=== PATIENT | female | born 1945 | race Caucasian/White ===

== ENCOUNTER 2020-03-08 16:10 | Inpatient (IN) | payer MEDICARE, OTHER ==
[2020-03-08] VITALS (319 sets, daily range): BP systolic 115–183; BP diastolic 49–70; PULSE 48–94; TEMP 97.7–97.8; O2SAT 88–100
[~2020-03-08] VITALS: Ht 167.6 cm; Wt 56.8 kg
--- NOTE | 2020-03-08 15:00 | NUR ---
RECEIVED REPORT FROM [facility] ICU WYATT KIM. AWAITING ARRIVAL OF PT TO ICU 7.
[~2020-03-08 16:10] MED LIST: FLEXERIL5 MG PO; GLUCOPHAGE500 MG/TAB PO; NEURONTIN100 MG/CAP PO; NORCO 325 MG-51 TAB PO; VITAMIN B1225 MCG PO; ZOCOR 20MG20 MG PO
--- NOTE | 2020-03-08 16:40 | NUR ---
RECEIVED REPORT FROM MACHINE CLOTHING REPLACER ON EMS, STATES IS 5 MINUTES OUT.
--- NOTE | 2020-03-08 16:50 | NUR ---
PT ARRIVES TO ICU 7. DR RIOJAS AT BEDSIDE FOR ASSESSMENT. PT ON 2L VIA NC. PT WALKS OVER TO ICU BED X1 ASSIST. PLACED ON BEDSIDE CONTINUOUS MONITOR. CALL LIGHT WITHIN REACH. DR RIOJAS AWARE OF HIGH BP STATES TO JUST MONITOR CLOSELY. SEE GTT FLOWSHEET.
[2020-03-08] MEDS ORDERED: ZOCOR 10MG10 MG PO (17:23)
[2020-03-08] MEDS ORDERED: ALTACE 5MG5 MG PO (17:24)
[2020-03-08] MEDS ORDERED: REMERON30 MG PO (17:25)
[2020-03-08] MEDS ORDERED: THE MEDICINE S200 M2 PO (17:27)
[2020-03-08] MEDS ORDERED: RT ADVAIR 228 DISKUS IH (17:27)
[2020-03-08] MEDS ORDERED: THEO-24 20200 MG/CAP PO ×2 (17:47)
[2020-03-08] MEDS ORDERED: SPIRIVA RE2.5 MCG/Ac IH (20:50)
[2020-03-08] MEDS ORDERED: RT SPIRIVA18 MCG IH (20:50)
--- NOTE | 2020-03-08 23:27 | NUR ---
PT RESTING IN BED DENIES ANY PAIN, DOA. ABLE TO GET UP FROM BED STAND-BY ASSIST. PT REMAINS ON 2L NC WHICH IS HOME O2 LEVEL. PT REMAINS ON DOBUTAMINE GTT @ 5MCG. VSS WILL CONTINUE TO MONITOR PT STATUS AND UPDATE PROVIDERS NEEDED.
[2020-03-09] VITALS (988 sets, daily range): BP systolic 106–153; BP diastolic 44–76; PULSE 81–118; TEMP 97.6–98.1; O2SAT 92–100
[2020-03-09 06:09] LABS: BASO # 0.1 (0.0-0.2); BASO % 0.8 % (0.0-2.0); EOS # 0.2 (0.0-0.7); EOS % 3.2 % (0-4.0); GRAN # 4.9 (1.4-6.5); GRAN % 67.4 % (42.2-75.2); HEMOGLOBIN 10.6 g/dl (12.5-16.0); LYMPH # 1.1 (1.2-3.4); LYMPH % 15.6 % (20.0-51.0); MEAN CELL VOLUME 90 fl (80.0-100.0); MEAN CORPUSCULAR HEMOGLOBIN 29 pg (27.0-31.0); MEAN CORPUSCULAR HGB CONC 32 g/dl (33.0-37.0); MEAN PLATELET VOLUME 10.9 fl (7.4-10.4); MONO # 0.9 (0.1-0.6); MONO % 12.6 % (1.7-9.3); PLATELET COUNT 311 K/mm3 (130-400); RED BLOOD COUNT 3.67 M/mm3 (4.10-5.30); REDCELL DISTRIBUTION WIDTH-CV 12.9 % (11.5-14.5)
[2020-03-09 06:15] LABS: HEMATOCRIT 32.9 % (37.0-47.0)
[2020-03-09 06:19] LABS: INR 1.2 (0.8-3.0); PROTHROMBIN TIME 13.5 SECONDS (9.7-12.8)
[2020-03-09 06:22] LABS: BILIRUBIN,TOTAL 0.4 mg/dL (0.0-1.0); CALCIUM 9.4 mg/dL (8.4-10.2); CREATININE, serum 0.37 (0.52-1.25); POTASSIUM 3.5 mmol/L (3.4-5.0); TOTAL PROTEIN 6.5 gm/dL (6.4-8.2)
[2020-03-09 06:48] LABS: TSH w REFLEX 0.612 uIU/mL (0.465-4.680)
--- NOTE | 2020-03-09 07:05 | NUR ---
RECEIVED REPORT FROM WYATT SYED. PT RESTING ON 2L VIA NC. VSS. CALL LIGHT WITHIN REACH.
--- NOTE | 2020-03-09 09:32 | NUR ---
MAGUE met with the patient to discuss discharge plan. The patient's , Farhat (ph#[phone]), was on speaker phone. The patient lives in [place] with her . She reports needing some assistance with ADLs these last few days and has a rolaider and home oxygen (2 liters) from [facility]. She states that her has been assisting her with her ADLs. The patient's PCP is Dr. Shawn Arana and she receives her medications on [place]. She reports no difficulties obtaining her meds. The patient does not have a DPOA-HC completed and she was not interested in completing one at this time. The patient would like to return home upon discharge. The is in agreeance to this. They both just want to make sure that the patient is getting around okay. MAGUE to ask the hospitalist for PT/OT to be ordered. MAGUE to continue to follow.
--- NOTE | 2020-03-09 13:22 | NUR ---
SW asked the patient's RN for PT/OT to be ordered.
--- NOTE | 2020-03-09 15:10 | NUR ---
PT TO [place] AT 1330 AND THEN BACK TO ROOM AND PLACED BACK ON BEDSIDE COTNINUOUS MONITOR AT 1510. PT REMAINS ON DOPAMINE GTT THROUGOUT SCAN.
--- NOTE | 2020-03-09 15:18 | NUR ---
SPOKE TO DR COOPER ABOUT POC. PHYSICIAN STATES TO LET PT EAT AND BE NPO AFTER MIDNIGHT AGAIN FOR POTENTIAL OF PROCEDURE TOMORROW.
--- NOTE | 2020-03-09 19:30 | NUR ---
Patient resting comfortably in bed and watching TV. Denies any concerns or complaints at this time. Assisted up the the bedside commode with standby assist only. Call light left within reach
[2020-03-10] VITALS (777 sets, daily range): BP systolic 91–146; BP diastolic 33–61; PULSE 61–89; TEMP 97.3–98.8; O2SAT 98–100
--- NOTE | 2020-03-10 04:45 | NUR ---
Assisted up to bedside commode; denies any concners or complaints at this time; call light left within reach.
[2020-03-10 05:46] LABS: BASO # 0.1 (0.0-0.2); BASO % 0.9 % (0.0-2.0); EOS # 0.4 (0.0-0.7); EOS % 5.9 % (0-4.0); GRAN # 4.4 (1.4-6.5); GRAN % 63.3 % (42.2-75.2); HEMOGLOBIN 10.3 g/dl (12.5-16.0); LYMPH # 1.2 (1.2-3.4); LYMPH % 17.8 % (20.0-51.0); MEAN CELL VOLUME 88 fl (80.0-100.0); MEAN CORPUSCULAR HEMOGLOBIN 29 pg (27.0-31.0); MEAN CORPUSCULAR HGB CONC 33 g/dl (33.0-37.0); MEAN PLATELET VOLUME 9.8 fl (7.4-10.4); MONO # 0.8 (0.1-0.6); MONO % 11.7 % (1.7-9.3); PLATELET COUNT 372 K/mm3 (130-400); RED BLOOD COUNT 3.53 M/mm3 (4.10-5.30); REDCELL DISTRIBUTION WIDTH-CV 12.9 % (11.5-14.5)
[2020-03-10 05:47] LABS: HEMATOCRIT 31.1 % (37.0-47.0)
[2020-03-10 05:57] LABS: CALCIUM 9.2 mg/dL (8.4-10.2); CREATININE, serum 0.36 (0.52-1.25); POTASSIUM 3.3 mmol/L (3.4-5.0)
--- NOTE | 2020-03-10 06:55 | NUR ---
Pt arrived to ICU 8 with SINDY Edwards, respiratory therapists and multiple other staff memebers to assist pt transfer to ICU bed. Pt on BiPAP with SpO2 84-93%, respiratory distress. Pt is awake and alert able to voice concerns, for example: "I am cold, I need another blanket". 0715: Report given to WYATT Root
--- NOTE | 2020-03-10 07:12 | NUR ---
Report given to WYATT Root, Patient care transfered.
--- NOTE | 2020-03-10 08:15 | NUR ---
DR. BELTRE ROUNDS AT THIS TIME. ORDER RECEIVED TO STOP THE DOPAMINE GTT. DOPAMINE STOPPED. HE STATES THAT PATIENT CAN GO TO FLOOR ON TELE AND WILL MONITOR FOR NEXT DAY OR SO AND IF SHE DOES WELL, THEN SHE CAN DISCHARGE HOME. IF SHE CONTINUES TO HAVE ISSUES, THEN WILL RECONSIDER PACEMAKER PLACEMENT.
--- NOTE | 2020-03-10 09:58 | NUR ---
Initial visit; Patient thanked Branding Machine Tender for looking in on her, visiting and offering God's blessings.
--- NOTE | 2020-03-10 20:00 | NUR ---
Report recieved, assumed care for operations supervisor 2nd shift. Assessment complete. VS stable. A&Ox3-drowsy. Denies pain/nausea. Short of breath with activity. O2@2L/NC-baseline. LCTA. Tele showing SR. Plan of care discussed for this shift to include HS meds/calling for questions/concerns/NPO at midnight. Verbalizes understanding. Call light in reach. Will monitor.
[2020-03-11] VITALS (7 sets, daily range): BP systolic 129–167; BP diastolic 54–63; PULSE 80–98; TEMP 97.6–99.1
--- NOTE | 2020-03-11 00:30 | NUR ---
Resting eyes closed. No s/s of pain noted.
--- NOTE | 2020-03-11 05:59 | NUR ---
Rested well this shift. Has been NPO since midnight. Denied pain/nausea/shortness of breath. Voiding without difficulty. Tele showed SR this shift. Denies needs. Call light in reach. Will monitor.
--- NOTE | 2020-03-11 08:14 | NUR ---
Lying in bed with eyes open. Alert and oriented x4. Denies pain. Patient says that she feels okay at this time. Denies additional needs.
--- NOTE | 2020-03-11 10:04 | NUR ---
Patient spouse, Alvaro, calls and is upset about patient being discharge and would like to talk with the doctor. Obtained phone number. Explained that I would provide to the doctor and they would call him back. COntacted SINDY Eric, and provided patient spouse number. She says that they will call and talk to him.
--- NOTE | 2020-03-11 10:26 | NUR ---
SINDY Eric, calls back and says to hold off on discharging patient until Dr. Moy comes in to see the patient.
--- NOTE | 2020-03-11 10:30 | NUR ---
Studio Set Up Worker presented IM form to the patient the patient understood and signed the form. A copy was provided to the patient and the original was placed in the chart. SW discussed the discharge plan with the patient. She plans to return home. MAGUE provided Medicare.gov's list of home health agencies that serve the [facility]. She does not know if she wants home health at this time. MAGUE provided education on how to obtain home health services after discharge.
--- NOTE | 2020-03-11 11:55 | NUR ---
Patient lying in bed watching TV and talking on cell phone. Explain that we are holding off on discharge until she is able to talk with Dr. Moy. Patient says that she is just worried she will go home and the same symptoms will develop again and she will be back in the hospital again. Patient says that she still does not feel well and does not feel that much was changed to make her feel better. Reassurance provided to the patient. Patient denies additional needs at this time.
--- NOTE | 2020-03-11 16:10 | NUR ---
Lying in bed watching TV. Denies pain. Updated patient to visitor policy that will go into effect tomorrow morning and that the visiting hours will be from [id number], she will only be allowed one visitor and they will have to stay the entire time, they will not be allowed to come and go. Patient verbalizes understanding. Denies needs at this time.
--- NOTE | 2020-03-11 16:49 | NUR ---
Blood sugar 78. Patient has ordered dinner but would like some david crackers and peanut butter at this time. Provided to the patient. Denies additional needs.
--- NOTE | 2020-03-11 20:00 | NUR ---
Pt. sitting up in bed at this time. Pt. is A&OX3, assessment complete. INT to rt. and lt. hand patent. Pt. denies pain or other needs, call light within reach.
[2020-03-12] VITALS (13 sets, daily range): BP systolic 102–166; BP diastolic 48–91; PULSE 70–95; TEMP 97.7–98.3
--- NOTE | 2020-03-12 08:00 | NUR ---
PATIENT IS A&O. VSS. NO C/O PAIN. PATIENT IS SCHEDULED TO HAVE A PACEMAKER PLACED TODAY. NPO. NO ORDERS FOR A CONSENT AT THIS TIME. STUDENT NURSE WORKING WITH PATIENT TODAY, SEE CHARTING. HEAD TO TOE ASSESSMENT COMPLETE. AM MEDS GIVEN BY STUDENT. NO OTHER NEEDS AT THIS TIME. CALL LIGHT IN REACH.
--- NOTE | 2020-03-12 09:14 | NUR ---
Rigging Engineer attended clinical rounds with the team. The patient to have a pacemaker placed this day.
[2020-03-12 09:27] LABS: BASO # 0.1 (0.0-0.2); EOS # 0.2 (0.0-0.7); EOS % 3.2 % (0-4.0); GRAN # 3.8 (1.4-6.5); GRAN % 61.7 % (42.2-75.2); HEMOGLOBIN 10.5 g/dl (12.5-16.0); LYMPH # 1.4 (1.2-3.4); LYMPH % 22.6 % (20.0-51.0); MEAN CELL VOLUME 90 fl (80.0-100.0); MEAN CORPUSCULAR HEMOGLOBIN 29 pg (27.0-31.0); MEAN CORPUSCULAR HGB CONC 32 g/dl (33.0-37.0); MEAN PLATELET VOLUME 9.8 fl (7.4-10.4); MONO # 0.7 (0.1-0.6); MONO % 11.3 % (1.7-9.3); PLATELET COUNT 368 K/mm3 (130-400); RED BLOOD COUNT 3.63 M/mm3 (4.10-5.30)
[2020-03-12 09:28] LABS: CALCIUM 9.4 mg/dL (8.4-10.2); CREATININE, serum 0.41 (0.52-1.25); HEMATOCRIT 32.5 % (37.0-47.0); POTASSIUM 3.9 mmol/L (3.4-5.0)
--- NOTE | 2020-03-12 09:35 | NUR ---
Follow-up visit; Patient thanked Boxing Machine Operator for looking in on her and offering prayer and God's blessings prior to her surgical procedure. Boxing Machine Operator will continue to look in on Diana.
--- NOTE | 2020-03-12 11:31 | NUR ---
Cutter Operator met with the patient to review the discharge plan and discuss home health services. The patient was now agreeable to home health services and chose [facility]. Referral faxed.
--- NOTE | 2020-03-12 14:00 | NUR ---
PATIENT GOING DOWN TO MUSICAL INSTRUMENTS ASSEMBLER FOR PACERPLACEMENT
--- NOTE | 2020-03-12 14:43 | NUR ---
SEE MERGE DOCUMENTATION FOR MEDICATION ADMINISTRATION AND INTRA/POST PROCEDURE SEDATION ASSESSMENTS.
--- NOTE | 2020-03-12 15:59 | NUR ---
Deya with [facility] reports they can accept the patient for services.
--- NOTE | 2020-03-12 21:52 | NUR ---
Patient resting in bed. Sling on L arm. Patient reports having some pain, but does not want any pain medication at this time. Blood sugar was 205 around 1999. Patient refused insulin and requested to have her sugar checked again around 2114. Blood sugar was 97. Patient up to bedside commode to void, 1 assist. No other needs at this time. Call light in reach.
--- NOTE | 2020-03-12 23:46 | NUR ---
Patient up to use bedside commode. Complaining of more pain to her L chest and requests pain medication. Patient wanted to try some tylenol. Administered per orders. Will check back with her to see if it helped.
[2020-03-13 04:26] VITALS: BP 130/77; PULSE 83; TEMP 98.2
--- NOTE | 2020-03-13 06:27 | NUR ---
Patient had no complaints of pain the rest of the night. VSS. Sling to her L arm.
--- NOTE | 2020-03-13 06:40 | NUR ---
Lying in bed on right side. Alert and oriented x4. Patient says that she can tell a difference in how she feels since she got the pacemaker placed. Patient says that she is having some pain in the left shoulder/chest area but declines Tylenol at this time. Patient has left arm in sling. Dressing to left chest CDI. Patient says that she may be going home today. Denies additional needs at this time.
[2020-03-13 07:15] VITALS: BP 149/55; PULSE 79; TEMP 98
[2020-03-13 08:20] LABS: BASO # 0.1 (0.0-0.2); BASO % 0.8 % (0.0-2.0); EOS # 0.2 (0.0-0.7); EOS % 2.5 % (0-4.0); GRAN # 4.9 (1.4-6.5); GRAN % 67.3 % (42.2-75.2); HEMOGLOBIN 10.2 g/dl (12.5-16.0); LYMPH # 1.3 (1.2-3.4); LYMPH % 17.8 % (20.0-51.0); MEAN CELL VOLUME 89 fl (80.0-100.0); MEAN CORPUSCULAR HEMOGLOBIN 30 pg (27.0-31.0); MEAN CORPUSCULAR HGB CONC 33 g/dl (33.0-37.0); MEAN PLATELET VOLUME 10.4 fl (7.4-10.4); MONO # 0.8 (0.1-0.6); MONO % 11.5 % (1.7-9.3); PLATELET COUNT 332 K/mm3 (130-400); RED BLOOD COUNT 3.44 M/mm3 (4.10-5.30); REDCELL DISTRIBUTION WIDTH-CV 13.1 % (11.5-14.5)
[2020-03-13 08:21] LABS: HEMATOCRIT 30.7 % (37.0-47.0)
[2020-03-13 08:43] LABS: ALBUMIN 3.8 gm/dL (3.5-5.0); BILIRUBIN,TOTAL 0.5 mg/dL (0.0-1.0); CALCIUM 9.1 mg/dL (8.4-10.2); CREATININE, serum 0.39 (0.52-1.25); POTASSIUM 3.7 mmol/L (3.4-5.0); TOTAL PROTEIN 6.3 gm/dL (6.4-8.2)
[2020-03-13] MEDS ORDERED: CEPHALEXIN500 M1 PO (08:43)
--- NOTE | 2020-03-13 10:14 | NUR ---
Patient lying in bed with eyes open. Asks when she will be discharged so that she can give her spouse a [employer] time frame to pick her up. Explain that we are waiting on radiology to come perform a chest xray. Explain that as long as that is normal she should be good to go. Patient says that she will tell her spouse approx 1300. Patient denies additional needs at this time.
--- NOTE | 2020-03-13 11:33 | NUR ---
Patient lying in bed on right side. Per the patient radiology has not been in yet to perform xray. Contact radiology and they will come do xray.
--- NOTE | 2020-03-13 11:55 | NUR ---
Radiology has been in and performed xray. Explain that we will wait on the results. Review all discharge instructions with the patient. Patient denies questions and verbalizes understanding. Signs discharge paperwork. Discharge packet provided to the patient. Patient says that once we have the xray results to let her know so she can let her spouse know he can come get her. Patient denies additional needs at this time.
[2020-03-13 12:54] VITALS: BP 135/53; PULSE 84; TEMP 97.9
--- NOTE | 2020-03-13 13:50 | NUR ---
Patient assisted out to POV via wheelchair with all personal belongings. Patient spouse is at patient admission entrance to get her. CALISTA Roth, assists patient.
--- NOTE | 2020-03-13 16:14 | NUR ---
The patient discharged home today, 03/13 with [facility]. PT/OT and nursing services. SW faxed discharge orders. There are no additional needs.
== END 2020-03-13 13:50 | disposition home health service (06) | DRG 309 ==
LOC: ICU 16:10 → SURG 03-10 18:32
PROVIDERS: Internal Medicine Cardiovascular Disease; Physician Assistant; Student in an Organized Health Care Education/Training Program; ADMIT Internal Medicine
DX: I44.2 Atrioventricular block, complete (principal); N39.0 Urinary tract infection, site not specified; I10 Essential (primary) hypertension; J44.9 Chronic obstructive pulmonary disease, unspecified; G47.33 Obstructive sleep apnea (adult) (pediatric); I08.1 Rheumatic disorders of both mitral and tricuspid valves; E11.9 Type 2 diabetes mellitus without complications; R00.1 Bradycardia, unspecified; M19.90 Unspecified osteoarthritis, unspecified site; B96.4 Proteus (mirabilis) (morganii) as the cause of diseases classified elsewhere; E78.5 Hyperlipidemia, unspecified; Z99.81 Dependence on supplemental oxygen; Z79.84 Long term (current) use of oral hypoglycemic drugs; Z79.1 Long term (current) use of non-steroidal anti-inflammatories (NSAID); Z85.118 Personal history of other malignant neoplasm of bronchus and lung; Z87.891 Personal history of nicotine dependence
CPT/HCPCS: 99223-AI; 99232-AI; 99233-AI; 99239; A9284; A9500; J0690; J0696; J1265; J1650; J2250; J2785; J3010; J7030

== ENCOUNTER 2021-02-24 09:07 | Day surgery (SDC) | payer MEDICARE, OTHER ==
[~2021-02-24] VITALS: Ht 167.6 cm; Wt 47.2 kg
[~2021-02-24 09:07] MED LIST changes: +ALTACE 5MG5 MG PO; +CEPHALEXIN500 M1 PO; +REMERON30 MG PO; +RT ADVAIR 228 DISKUS IH; +RT SPIRIVA18 MCG IH; +SPIRIVA RE2.5 MCG/Ac IH; +THE MEDICINE S200 M2 PO; +THEO-24 20200 MG/CAP PO; +ZOCOR 10MG10 MG PO
[2021-02-24 09:46] VITALS: BP 149/60; PULSE 107; TEMP 97.7
--- NOTE | 2021-02-24 10:01 | NUR ---
Initial visit; Patient thanked Salesperson Women'S Hats for looking in on her and offering encouragement and prayer prior to her surgical procedure.
[2021-02-24] MEDS ORDERED: COENZYME Q-1030 MG PO (10:12)
[2021-02-24] MEDS ORDERED: MULTI VITAMINS1 TAB PO (10:18)
[2021-02-24] MEDS ORDERED: VTAMINC250TA PO (10:18)
[2021-02-24] MEDS ORDERED: PHARMASSURE CHE30 MG PO (10:20)
[2021-02-24] MEDS ORDERED: ALTACE 5MG5 MG PO (10:22)
[2021-02-24 11:55] VITALS: BP 115/58; PULSE 86; TEMP 97.7
--- NOTE | 2021-02-24 11:55 | NUR ---
Pt returned to [facility]. Ambulated from cart to recliner. Given multiple warm blankets. Spouse present in room. VSS-see flowsheet. Given food and drink per request. Denies complaints.
[2021-02-24 12:00] VITALS: BP 137/55; PULSE 80
[2021-02-24 12:15] VITALS: BP 143/46; PULSE 85
[2021-02-24 12:30] VITALS: BP 149/58; PULSE 81
--- NOTE | 2021-02-24 13:10 | NUR ---
Pt tolerated food and drink. VS remain stable. IV removed, pressure dressing applied. Discharge teaching completed, pt verbalized understanding. Taken via wheelchair to private vehicle for dc home with spouse driving.
== END 2021-02-24 13:10 | disposition home or self-care (01) ==
LOC: SDCO 09:07
DX: D12.2 Benign neoplasm of ascending colon (principal); D12.5 Benign neoplasm of sigmoid colon; K63.5 Polyp of colon; K64.4 Residual hemorrhoidal skin tags; K62.89 Other specified diseases of anus and rectum; J44.9 Chronic obstructive pulmonary disease, unspecified; E11.9 Type 2 diabetes mellitus without complications; G89.29 Other chronic pain; Z95.0 Presence of cardiac pacemaker; Z79.84 Long term (current) use of oral hypoglycemic drugs; Z85.118 Personal history of other malignant neoplasm of bronchus and lung; Z87.891 Personal history of nicotine dependence; Z99.81 Dependence on supplemental oxygen; Z79.891 Long term (current) use of opiate analgesic; Z98.84 Bariatric surgery status
CPT/HCPCS: J2704; J7030

== ENCOUNTER 2021-04-09 10:14 | Day surgery (SDC) | payer MEDICARE, OTHER ==
[~2021-04-09] VITALS: Ht 165.1 cm; Wt 44.2 kg
[~2021-04-09 10:14] MED LIST changes: +COENZYME Q-1030 MG PO; +MULTI VITAMINS1 TAB PO; +PHARMASSURE CHE30 MG PO; +VTAMINC250TA PO
[2021-04-09 12:15] VITALS: BP 131/68; PULSE 102; TEMP 98.5
[2021-04-09 14:40] VITALS: BP 152/65; PULSE 83
--- NOTE | 2021-04-09 14:40 | NUR ---
PATIENT RETURNS TO BAY 3 PER CART AND TRANSFERS FROM CART TO RECLINER WITH TWO PERSON ASSIST. TEMP 98. SATS 97% ON 2L. IV FLUIDS ALL INFUSED AND SWITCHED TO INT. SPOUSE IN ROOM. EATING MUFFIN AND DRINKING WATER. CALL LIGHT IN REACH.
[2021-04-09 14:55] VITALS: BP 140/82; PULSE 81
--- NOTE | 2021-04-09 14:55 | NUR ---
TALKING WITH SPOUSE AND TOLERATES MUFFIN.
--- NOTE | 2021-04-09 15:03 | NUR ---
DR. AGUILAR HERE AND TALKS WITH THE PATIENT AND SPOUSE. ALL QUESTIONS ANSWERED.
--- NOTE | 2021-04-09 15:07 | NUR ---
INT NEEDLE DISCONTINUED AND SITE IS FREE OF REDNESS. DRESSES SELF. ASSISTED TO BATHROOM AND IS ON PORTABLE OXYGEN AT 2L PER NASAL CANNULA.
--- NOTE | 2021-04-09 15:25 | NUR ---
DISMISSAL INSTRUCTIONS GIVEN AND VOICES UNDERSTANDING OF THESE.
--- NOTE | 2021-04-09 15:29 | NUR ---
PATIENT DISMISSED TO HOME DRIVEN BY SPOUSE AND TAKEN TO THE FRONT DOOR PER WHEELCHAIR AND ASSISTED INTO VEHICLE WITH INSTRUCTIONS IN HAND AND PATIENT IS ON PORTABLE OXGEN.
== END 2021-04-09 15:29 | disposition home or self-care (01) ==
LOC: SDCO 10:14
DX: Z12.11 Encounter for screening for malignant neoplasm of colon (principal); D12.2 Benign neoplasm of ascending colon; D12.5 Benign neoplasm of sigmoid colon; R63.4 Abnormal weight loss; Z87.891 Personal history of nicotine dependence; Z85.118 Personal history of other malignant neoplasm of bronchus and lung; Z98.84 Bariatric surgery status
CPT/HCPCS: J2704; J3010; J7120